=== PATIENT | male | born 1990 | race American Indian/Alaskan Native ===

== ENCOUNTER 2016-10-20 20:30 | Emergency (ER) | payer SELFPAY ==
[2016-10-20 20:41] VITALS: BP 146/77; PULSE 88; RESP 18; TEMP 97.9; O2SAT 98
--- NOTE | 2016-10-20 21:12 | ED PDOC ---
HPI: Male Pain Time Seen by Provider: 10/20/16 20:49 Chief Complaint (Nursing): Wound Check Chief Complaint (Provider): penile irritation History Per: Patient History/Exam Limitations: no limitations Onset/Duration Of Symptoms: Days (3 weeks) Current Symptoms Are (Timing): Still Present Quality Of Discomfort: Other (itching/burning) Additional History Per: Patient Additional Complaint(s): 25 y/o male presents for eval of penile irritation x 3 weeks. Patient notes "bumps" to penile head, that sometimes cause itching or burning. He notes one of the bumps to have looked like a pimple at onset, which he tried to pop, which scabbed over and then he removed scab. Today he noted some clear drainage from one of the bumps. Patient states he has had history of abscesses and is unsure if this is the same. Denies fever, nausea/vomiting, penile pain, penile discharge, testicular pain/swelling, dysuria, hematuria. Patient states he has not been sexually active in 2 months. Past Medical History Reviewed: Historical Data, Nursing Documentation, Vital Signs Vital Signs: Last Vital Signs Temp 97.9 F 10/20/16 20:35 Pulse 88 10/20/16 20:35 Resp 18 10/20/16 20:35 BP 146/77 10/20/16 20:35 Pulse Ox 98 10/20/16 20:35 - Medical History PMH: Asthma - Surgical History Surgical History: No Surg Hx - Family History Family History: States: Unknown Family Hx - Home Medications Home Medications: Ambulatory Orders Medication Instructions Recorded Bacitracin Ointment [Bacitracin] 1 applic TOP BID #1 tube 10/20/16 - Allergies Allergies/Adverse Reactions: Allergies Allergy/AdvReac Type Severity Reaction Status Date / Time No Known Allergies Allergy Verified 10/20/16 20:41 Review of Systems ROS Statement: Except As Marked, All Systems Reviewed And Found Negative Genitourinary Male: Positive for: Rash Physical Exam - Reviewed Nursing Documentation Reviewed: Yes Vital Signs Reviewed: Yes - Physical Exam Appears: Positive for: Well, Non-toxic, No Acute Distress Head Exam: Positive for: ATRAUMATIC, NORMAL INSPECTION, NORMOCEPHALIC Skin: Positive for: Normal Color Eye Exam: Positive for: Normal appearance ENT: Positive for: Normal ENT Inspection Cardiovascular/Chest: Positive for: Regular Rate, Rhythm Respiratory: Positive for: Normal Breath Sounds Gastrointestinal/Abdominal: Positive for: Normal Exam Male Genital Exam: Positive for: other (3 erythematous areas of skin scarring/ erosion noted to glans; no vesicles, drainage, surorunding erythema or swelling noted. exam chaperoned by Cinthya mascorro). Negative for: scrotum tenderness (R), scrotum tenderness (L), testicular tenderness (R), testicular tenderness (L), urethral discharge Extremity: Positive for: Normal ROM - Laboratory Results Urine dip results: Negative for: Leukocyte Esterase, Blood, Nitrate - ECG O2 Sat by Pulse Oximetry: 98 - Progress ED Course And Treament: urine Patient educated on findings, discharged with rx Bacitracin. Advised follow up PMD. Return to ED for worsening/concerning symptoms. Disposition - Clinical Impression Clinical Impression: Penile irritation - Patient ED Disposition Is Patient to be Admitted: No Counseled Patient/Family Regarding: Studies Performed, Diagnosis, Need For Followup, Rx Given - Disposition Referrals: [facility] [Outside] Disposition: Routine/Home Disposition Time: 21:41 Condition: GOOD Additional Instructions: Use medication as directed. Follow up with primary doctor in 1 week. Return to ED for worsening/concerning symptoms. Prescriptions: Bacitracin Ointment [Bacitracin] 1 applic TOP BID #1 tube
== END 2016-10-20 21:56 | disposition home or self-care (01) ==
LOC: H.ER 20:30
DX: N48.89 Other specified disorders of penis (principal); J45.909 Unspecified asthma, uncomplicated